=== PATIENT | female | born 1990 | race African-American/Black ===

== ENCOUNTER 2017-03-30 11:30 | Emergency (ER) | payer OTHER ==
[2017-03-30] MEDS ORDERED: ALPRAZolam 0.25 MG TAB ONE (12:47)
== END 2017-03-30 13:38 | disposition home or self-care (01) ==
LOC: ERS 11:30
DX: F41.9 Anxiety disorder, unspecified (principal); I10 Essential (primary) hypertension; F31.9 Bipolar disorder, unspecified; F17.210 Nicotine dependence, cigarettes, uncomplicated
CPT/HCPCS: 99283

== ENCOUNTER 2017-04-02 19:12 | Emergency (ER) | payer OTHER ==
[2017-04-02 19:54] LABS: #Basophils 0.1 thou/uL (0.0-0.2); #Eosinphils 0.4 thou/uL (0.0-0.7); #Lymphocytes 1.4 thou/uL (1.20-3.40); #Monocytes 0.5 thou/uL (0.11-0.59); #Neutrophils 6.5 thou/uL (1.40-6.50); %Basophils 0.7 % (0.0-1.0); %Eosinophils 4.5 % (0.0-10.0); %Lymphocytes 15.5 % (21.0-51.0); %Monocytes 5.5 % (0.0-10.0); Hematocrit 37.6 % (36.0-47.0); Mean Platelet Volume 8.7 fL (7.4-10.4); Red Blood Cell (RBC) Count 4.57 mill/uL (4.20-5.40); White Blood Cell (WBC) Count 8.9 thou/uL (4.8-10.8)
[2017-04-02 20:05] LABS: Bilirubin Negative (Negative); Blood, Urine Negative (Negative); Glucose, Urine (Dipstick) Negative (Negative); Ketone, Urine Negative (Negative); Nitrite Negative (Negative); Protein, Urine (Dipstick) Negative (Neg-Trace); Urobilinogen 0.2 mg/dL (0.2-1.0)
[2017-04-02 20:14] LABS: Acetaminophen Less than 6.0 mcg/mL (10.0-30.0); CK (CPK) 112 U/L (29-168); Lipase 37 U/L (8-78); Salicylate Less than 8.0 mg/dL (15.0-30.0)
[2017-04-02 20:15] LABS: Amphetamine Not Detected (NotDetected); Methadone Not Detected (NotDetected); Methamphetamine Not Detected (NotDetected)
[2017-04-02 20:15] LABS: ALT (SGPT) 9 U/L (8-55); AST (SGOT) 14 U/L (5-34); Alkaline Phosphatase 110 U/L (40-150); Anion Gap 11 mmol/L (10-20); BUN (Urea Nitrogen) 9 mg/dL (7.0-18.7); Bilirubin, Total 0.2 mg/dL (0.2-1.2); Calc. Creatinine Clearance 0 mL/min (70-130); Carbon Dioxide 28 mmol/L (22-29); Chloride 105 mmol/L (98-107); Estimated GFR-MDRD Greater than 90; Globulin 3.6 g/dL (2.4-3.5); Protein, Total 7.8 g/dL (6.0-8.3)
[2017-04-02 20:18] LABS: Troponin I Less than 0.010 ng/mL (< 0.028)
--- NOTE | 2017-04-02 20:26 | RAD ---
PORTABLE AP CHEST X-RAY: 04/02/17 HISTORY: Anxiety, chest pain. COMPARISON: 12/18/16. FINDINGS: The cardiac silhouette and pulmonary vasculature are within normal limits. The lungs are clear. Ther e has been no interval change from prior study. IMPRESSION: No acute cardiopulmonary process. POS: [facility]
[2017-04-02] MEDS ORDERED: Metoclopramide HCl 10 MG/2 ML VIAL ONE (20:56)
[2017-04-02] MEDS ORDERED: diphenhydrAMINE HCl 50 MG/ML 1 ML VIAL ONE (20:56)
[2017-04-02] MEDS ORDERED: Ketorolac Tromethamine 30 MG/ML VIAL ONE (20:56)
== END 2017-04-02 23:29 | disposition home or self-care (01) ==
LOC: ERS 19:12
DX: F41.0 Panic disorder [episodic paroxysmal anxiety] (principal); G43.909 Migraine, unspecified, not intractable, without status migrainosus; I10 Essential (primary) hypertension; F32.9 Major depressive disorder, single episode, unspecified; F17.210 Nicotine dependence, cigarettes, uncomplicated; Z79.899 Other long term (current) drug therapy
CPT/HCPCS: 36415; 71010; 80053; 80306; 80307; 81003; 81025; 82553; 83690; 84443; 84484; 85025; 93005; 96361; 96365; 96375; J1200; J1885; J2765

== ENCOUNTER 2017-04-14 10:24 | Emergency (ER) | payer OTHER ==
[2017-04-14 11:05] LABS: Bilirubin Negative (Negative); Blood, Urine Negative (Negative); Glucose, Urine (Dipstick) Negative (Negative); Ketone, Urine Negative (Negative); Nitrite Negative (Negative); Protein, Urine (Dipstick) Negative (Neg-Trace); Urobilinogen 0.2 mg/dL (0.2-1.0)
[2017-04-14 11:08] LABS: #Basophils 0.1 thou/uL (0.0-0.2); #Eosinphils 0.2 thou/uL (0.0-0.7); #Lymphocytes 2.1 thou/uL (1.20-3.40); #Monocytes 0.5 thou/uL (0.11-0.59); #Neutrophils 3.2 thou/uL (1.40-6.50); %Eosinophils 3.1 % (0.0-10.0); %Lymphocytes 34.4 % (21.0-51.0); %Monocytes 7.5 % (0.0-10.0); Hematocrit 35.3 % (36.0-47.0); Mean Platelet Volume 9.1 fL (7.4-10.4); Red Blood Cell (RBC) Count 4.42 mill/uL (4.20-5.40); White Blood Cell (WBC) Count 6.1 thou/uL (4.8-10.8)
[2017-04-14] MEDS ORDERED: Lidocaine Viscous Sol 2% 15 ml UD Cup ONE (11:15)
[2017-04-14] MEDS ORDERED: Ondansetron ODT 4 MG TAB ONE (11:15)
[2017-04-14] MEDS ORDERED: Mag-Al 1200 mg/1200 mg/30 ML UDCUP ONE (11:15)
[2017-04-14] MEDS ORDERED: Ketorolac Tromethamine 30 MG/ML VIAL ONE (11:26)
[2017-04-14 11:35] LABS: ALT (SGPT) 9 U/L (8-55); AST (SGOT) 14 U/L (5-34); Alkaline Phosphatase 113 U/L (40-150); Anion Gap 11 mmol/L (10-20); BUN (Urea Nitrogen) 7 mg/dL (7.0-18.7); Bilirubin, Total 0.4 mg/dL (0.2-1.2); Calc. Creatinine Clearance 0 mL/min (70-130); Calcium 10.1 mg/dL (7.8-10.44); Carbon Dioxide 25 mmol/L (22-29); Chloride 103 mmol/L (98-107); Estimated GFR-MDRD Greater than 90; Globulin 3.6 g/dL (2.4-3.5); Lipase 18 U/L (8-78); Protein, Total 8.2 g/dL (6.0-8.3)
[2017-04-14] MEDS ORDERED: Dicyclomine 20 MG TAB ONE (12:12)
== END 2017-04-14 13:01 | disposition home or self-care (01) ==
LOC: ERS 10:24
DX: R10.9 Unspecified abdominal pain (principal); R11.2 Nausea with vomiting, unspecified; I10 Essential (primary) hypertension; F41.9 Anxiety disorder, unspecified; F32.9 Major depressive disorder, single episode, unspecified; Z71.6 Tobacco abuse counseling; F17.210 Nicotine dependence, cigarettes, uncomplicated
CPT/HCPCS: 36415; 80053; 81003; 81025; 83690; 85025; 96372; 99406; J1885; Q0162

== ENCOUNTER 2017-06-06 18:53 | Emergency (ER) | payer OTHER ==
[2017-06-06] MEDS ORDERED: Acetaminophen 500 MG TAB ONE (19:22)
[2017-06-06] MEDS ORDERED: Ketorolac Tromethamine 30 MG/ML VIAL ONE (19:22)
[2017-06-06 19:37] LABS: #Basophils 0.1 thou/uL (0.0-0.2); #Eosinphils 0.5 thou/uL (0.0-0.7); #Lymphocytes 2.4 thou/uL (1.20-3.40); #Monocytes 0.6 thou/uL (0.11-0.59); #Neutrophils 4.3 thou/uL (1.40-6.50); %Basophils 1.2 % (0.0-1.0); %Eosinophils 6.4 % (0.0-10.0); %Lymphocytes 30.4 % (21.0-51.0); %Monocytes 7.1 % (0.0-10.0); Hematocrit 35.6 % (36.0-47.0); Mean Platelet Volume 9.4 fL (7.4-10.4); Red Blood Cell (RBC) Count 4.26 mill/uL (4.20-5.40); White Blood Cell (WBC) Count 7.7 thou/uL (4.8-10.8)
--- NOTE | 2017-06-06 19:41 | RAD ---
RADIOGRAPH CHEST 2 VIEWS: 06/06/17 HISTORY: 26-year-old female with chest pain and cough. FINDINGS: There is no air space density, pulmonary edema, pleural effusion, pneumothorax, or cardiomegaly. IMPRESSION: No acute cardiopulmonary findings. jn [] POS: [facility]
[2017-06-06 19:57] LABS: ALT (SGPT) 12 U/L (8-55); AST (SGOT) 19 U/L (5-34); Alkaline Phosphatase 98 U/L (40-150); Anion Gap 14 mmol/L (10-20); BUN (Urea Nitrogen) 11 mg/dL (7.0-18.7); Bilirubin, Total 0.2 mg/dL (0.2-1.2); CK (CPK) 111 U/L (29-168); Calc. Creatinine Clearance 0 mL/min (70-130); Calcium 9.7 mg/dL (7.8-10.44); Carbon Dioxide 23 mmol/L (22-29); Chloride 106 mmol/L (98-107); Estimated GFR-MDRD Greater than 90; Globulin 3.8 g/dL (2.4-3.5); Lipase 44 U/L (8-78); Protein, Total 8.1 g/dL (6.0-8.3)
[2017-06-06 20:04] LABS: Bilirubin Negative (Negative); Blood, Urine Negative (Negative); Glucose, Urine (Dipstick) Negative (Negative); Ketone, Urine Negative (Negative); Nitrite Negative (Negative); Protein, Urine (Dipstick) Negative (Neg-Trace); Urobilinogen 0.2 mg/dL (0.2-1.0)
[2017-06-06 20:07] LABS: Troponin I Less than 0.010 ng/mL (< 0.028)
[2017-06-06] MEDS ORDERED: Lorazepam 2 MG/ML VIAL ONE (20:16)
[2017-06-06] MEDS ORDERED: Morphine 4 MG/ML VIAL ONE (21:13)
== END 2017-06-06 23:49 | disposition home or self-care (01) ==
LOC: ERS 18:53
DX: J40 Bronchitis, not specified as acute or chronic (principal); I10 Essential (primary) hypertension; F31.9 Bipolar disorder, unspecified; F41.9 Anxiety disorder, unspecified; F17.210 Nicotine dependence, cigarettes, uncomplicated
CPT/HCPCS: 71020; 80053; 81003; 82553; 83690; 84484; 85025; 93005; 96361; 96374; 96375; J1885; J2060; J2270

== ENCOUNTER 2017-07-05 09:02 | Emergency (ER) | payer OTHER | END 2017-07-05 09:35 | disposition home or self-care (01) | LOC: ERS 09:02 | DX: K02.9 Dental caries, unspecified (principal); M25.561 Pain in right knee; M25.562 Pain in left knee; G89.29 Other chronic pain; F41.9 Anxiety disorder, unspecified; F32.9 Major depressive disorder, single episode, unspecified; F17.210 Nicotine dependence, cigarettes, uncomplicated; I10 Essential (primary) hypertension | CPT/HCPCS: 99282 ==

== ENCOUNTER 2017-08-28 09:37 | Emergency (ER) | payer OTHER ==
[2017-08-28 10:54] LABS: Bilirubin Negative (Negative); Blood, Urine Negative (Negative); Clarity CLEAR (Clear); Glucose, Urine (Dipstick) Negative (Negative); Leukocyte Negative (Negative); Nitrite Negative (Negative); Pregnancy Test - Urine (BHCG) Negative (Negative); Pregu Control Background? CLEAR/WHITE (CLR/WHITE); Pregu Control Bar Appear? YES (CONTROL BAR); Protein, Urine (Dipstick) Negative (Neg-Trace); Specific Gravity 1.019 (1.002-1.036); Specific Gravity, Urine 1.019 (1.002-1.036)
[2017-08-28 11:21] LABS: #Basophils 0.1 thou/uL (0.0-0.2); #Eosinphils 0.2 thou/uL (0.0-0.7); #Lymphocytes 1.6 thou/uL (1.20-3.40); #Monocytes 0.5 thou/uL (0.11-0.59); #Neutrophils 3.9 thou/uL (1.40-6.50); %Eosinophils 3.8 % (0.0-10.0); %Monocytes 7.4 % (0.0-10.0); %Neutrophils 61.7 % (42.0-75.0); Hemoglobin 11.4 g/dL (12.0-16.0); Mean Corpuscular HGB CONC 31.8 g/dL (32.0-36.0); Mean Corpuscular Hemoglobin 26.2 pg (27.0-31.0); Mean Corpuscular Volume 82.2 fl (81.0-99.0); Mean Platelet Volume 9.1 fL (7.4-10.4); Platelet Count 195 thou/uL (130-400); RBC Distribution Width 15.8 % (11.5-14.5); Red Blood Cell (RBC) Count 4.35 mill/uL (4.20-5.40); White Blood Cell (WBC) Count 6.3 thou/uL (4.8-10.8)
--- NOTE | 2017-08-28 11:24 | RAD ---
ONE VIEW CHEST: History: Sepsis. Comparison: 04-02-17 FINDINGS: Normal cardiac silhouette. The pulmonary vessels and hilum are normal. Costophrenic angles are clear. No consolidation or mass. No pneumothorax or osseous abnormality. IMPRESSION: No acute cardiopulmonary process. POS: [facility]
[2017-08-28 11:51] LABS: ALT (SGPT) Less than 7 U/L (8-55); AST (SGOT) 13 U/L (5-34); Albumin 4.2 g/dL (3.5-5.0); Alkaline Phosphatase 82 U/L (40-150); Anion Gap 12 mmol/L (10-20); BUN (Urea Nitrogen) 6 mg/dL (7.0-18.7); Bilirubin, Total 0.3 mg/dL (0.2-1.2); Calc. Creatinine Clearance 0 mL/min (70-130); Calcium 9.8 mg/dL (7.8-10.44); Carbon Dioxide 21 mmol/L (22-29); Chloride 107 mmol/L (98-107); Estimated GFR-MDRD Greater than 90; Glucose 85 mg/dL (70-105); Potassium 3.9 mmol/L (3.5-5.1); Protein, Total 7.2 g/dL (6.0-8.3); Sodium 136 mmol/L (136-145)
[2017-08-28] MEDS ORDERED: Ketorolac Tromethamine 30 MG/ML VIAL ONE (11:59)
== END 2017-08-28 12:09 | disposition home or self-care (01) ==
LOC: ERS 09:37
DX: M54.5 Low back pain (principal); I10 Essential (primary) hypertension; F41.9 Anxiety disorder, unspecified; F32.9 Major depressive disorder, single episode, unspecified; F17.210 Nicotine dependence, cigarettes, uncomplicated; Z79.899 Other long term (current) drug therapy
CPT/HCPCS: 36415; 71045; 80053; 81003; 81025; 83605; 85025; 87040; 87086; 96374; 99406; J1885

== ENCOUNTER 2018-01-25 06:11 | Emergency (ER) | payer OTHER ==
[2018-01-25] MEDS ORDERED: Ketorolac Tromethamine 60 MG/2 ML VIAL ONE (06:48)
[2018-01-25] MEDS ORDERED: Ondansetron ODT 4 MG TAB ONE (06:48)
== END 2018-01-25 07:06 | disposition home or self-care (01) ==
LOC: ERS 06:11
DX: K08.89 Other specified disorders of teeth and supporting structures (principal); I10 Essential (primary) hypertension; F32.9 Major depressive disorder, single episode, unspecified; F41.9 Anxiety disorder, unspecified; F17.210 Nicotine dependence, cigarettes, uncomplicated; Z71.6 Tobacco abuse counseling
CPT/HCPCS: 96372; 99406; J1885; Q0162

== ENCOUNTER 2018-04-25 14:46 | Emergency (ER) | payer OTHER | END 2018-04-25 16:30 | disposition home or self-care (01) | LOC: ERS 14:46 | DX: K04.7 Periapical abscess without sinus (principal); K02.9 Dental caries, unspecified; I10 Essential (primary) hypertension; F41.9 Anxiety disorder, unspecified; F32.9 Major depressive disorder, single episode, unspecified; F17.210 Nicotine dependence, cigarettes, uncomplicated; Z87.442 Personal history of urinary calculi; Z79.899 Other long term (current) drug therapy | CPT/HCPCS: 99283 ==

== ENCOUNTER 2018-10-10 08:24 | Emergency (ER) | payer OTHER ==
[2018-10-10] MEDS ORDERED: Ibuprofen 800 MG TAB ONE (10:33)
== END 2018-10-10 10:46 | disposition home or self-care (01) ==
LOC: ERS 08:24
DX: S83.91XA Sprain of unspecified site of right knee, initial encounter (principal); F17.210 Nicotine dependence, cigarettes, uncomplicated; F32.9 Major depressive disorder, single episode, unspecified; F41.9 Anxiety disorder, unspecified; I10 Essential (primary) hypertension; Z87.442 Personal history of urinary calculi; W01.0XXA Fall on same level from slipping, tripping and stumbling without subsequent striking against object, initial encounter
CPT/HCPCS: 99283

== ENCOUNTER 2019-03-25 09:10 | Emergency (ER) | payer OTHER ==
[2019-03-25] MEDS ORDERED: Ondansetron ODT 4 MG TAB ONE (09:57)
[2019-03-25] MEDS ORDERED: Morphine 4 MG/ML VIAL ONE (09:57)
== END 2019-03-25 10:20 | disposition home or self-care (01) ==
LOC: ERS 09:10
DX: K02.9 Dental caries, unspecified (principal); I10 Essential (primary) hypertension; F41.9 Anxiety disorder, unspecified; F32.9 Major depressive disorder, single episode, unspecified; F17.210 Nicotine dependence, cigarettes, uncomplicated
CPT/HCPCS: 96372; 99283; J2270; Q0162

== ENCOUNTER 2019-09-16 10:53 | Emergency (ER) | payer OTHER | END 2019-09-16 11:23 | disposition home or self-care (01) | LOC: ERS 10:53 | DX: K02.9 Dental caries, unspecified (principal); I10 Essential (primary) hypertension; F32.9 Major depressive disorder, single episode, unspecified; F41.9 Anxiety disorder, unspecified; F17.210 Nicotine dependence, cigarettes, uncomplicated | CPT/HCPCS: 99281 ==

== ENCOUNTER 2020-08-11 11:36 | Emergency (ER) | payer OTHER | END 2020-08-11 12:30 | disposition home or self-care (01) | LOC: ERS 11:36 | DX: R21 Rash and other nonspecific skin eruption (principal); R22.2 Localized swelling, mass and lump, trunk; B95.8 Unspecified staphylococcus as the cause of diseases classified elsewhere; I10 Essential (primary) hypertension; F17.210 Nicotine dependence, cigarettes, uncomplicated | CPT/HCPCS: 99282 ==

== ENCOUNTER 2020-11-12 13:57 | Emergency (ER) | payer OTHER ==
[2020-11-12] MEDS ORDERED: Ondansetron PF 4 MG/2 ML Vial ONE (14:28)
[2020-11-12 14:34] LABS: Bacteria/HPF 4+ HPF (None Seen); Bilirubin Negative (Negative); Blood, Urine Negative (Negative); Clarity Turbid (Clear); Glucose, Urine (Dipstick) Normal (Negative); Ketone, Urine Negative (Negative); Leukocyte 250 Leu/uL (Negative); Nitrite Negative (Negative); Protein, Urine (Dipstick) 30 mg/dL (Neg-Trace); Specific Gravity, Urine 1.028 (1.002-1.036); Squamous Epithelial 21-50 HPF (0-3); Urobilinogen Normal mg/dL (Less than 2)
[2020-11-12 14:37] LABS: Pregnancy Test - Urine (BHCG) Negative (Negative); Pregu Control Background? CLEAR/WHITE (CLR/WHITE); Pregu Control Bar Appear? YES (CONTROL BAR); Specific Gravity 1.028 (1.002-1.036)
[2020-11-12] MEDS ORDERED: Ketorolac Tromethamine 30 MG/ML VIAL ONE ×2 (14:52→15:38)
[2020-11-12] MEDS ORDERED: Ondansetron ODT 8 MG TAB ONE (15:38)
== END 2020-11-12 16:21 | disposition home or self-care (01) ==
LOC: ERS 13:57
DX: N10 Acute pyelonephritis (principal); I10 Essential (primary) hypertension; F17.210 Nicotine dependence, cigarettes, uncomplicated; Z79.899 Other long term (current) drug therapy; Z87.442 Personal history of urinary calculi
CPT/HCPCS: 74176; 81003; 81015; 81025; 96372; J1885; J2405; Q0162

== ENCOUNTER 2021-06-13 14:04 | Emergency (ER) | payer OTHER ==
[2021-06-13] MEDS ORDERED: diphenhydrAMINE 50 MG CAP ONE ×2 (14:49→15:38)
[2021-06-13] MEDS ORDERED: Metoclopramide HCl 10 MG/2 ML VIAL ONE (14:49)
[2021-06-13] MEDS ORDERED: diphenhydrAMINE 50 MG/ML VIAL ONE (14:49)
[2021-06-13] MEDS ORDERED: Ketorolac Tromethamine 30 MG/ML VIAL ONE (14:49)
[2021-06-13] MEDS ORDERED: Metoclopramide HCl 10 MG TAB ONE (15:38)
== END 2021-06-13 16:06 | disposition home or self-care (01) ==
LOC: ERS 14:04
DX: R51.9 Headache, unspecified (principal); I10 Essential (primary) hypertension; F17.210 Nicotine dependence, cigarettes, uncomplicated; Z79.899 Other long term (current) drug therapy
CPT/HCPCS: 93005; 96372; J1200; J1885; J2765

== ENCOUNTER 2022-03-25 13:33 | Emergency (ER) | payer OTHER ==
[2022-03-25] MEDS ORDERED: HYDROcodone/Acetaminophen 5/325 mg Tablet ONE (15:49)
== END 2022-03-25 15:49 | disposition home or self-care (01) ==
LOC: ERS 13:33
DX: L02.412 Cutaneous abscess of left axilla (principal); I10 Essential (primary) hypertension; F17.210 Nicotine dependence, cigarettes, uncomplicated; Z79.899 Other long term (current) drug therapy
CPT/HCPCS: 10060

== ENCOUNTER 2022-06-04 17:03 | Emergency (ER) | payer OTHER ==
[2022-06-04] MEDS ORDERED: Ondansetron ODT 4 MG TAB ONE (18:30)
[2022-06-04] MEDS ORDERED: Ketorolac Tromethamine 30 MG/ML VIAL ONE (18:30)
== END 2022-06-04 18:55 | disposition home or self-care (01) ==
LOC: ERS 17:03
DX: K04.7 Periapical abscess without sinus (principal); K02.9 Dental caries, unspecified; K03.81 Cracked tooth; I10 Essential (primary) hypertension; F17.210 Nicotine dependence, cigarettes, uncomplicated
CPT/HCPCS: 96372; 99282; J1885; Q0162

== ENCOUNTER 2022-07-06 10:57 | Emergency (ER) | payer OTHER ==
[2022-07-06] MEDS ORDERED: Iopamidol-370 76% 500 ML 1 ML ONE (11:23)
[2022-07-06 12:46] LABS: Hemoglobin 10.6 g/dL (12.0-16.0); Mean Corpuscular HGB CONC 30.6 g/dL (32.0-36.0); Mean Corpuscular Hemoglobin 21.9 pg (27.0-31.0); Mean Corpuscular Volume 71.6 fl (78.0-98.0); Platelet Count 260 10x3/uL (130-400); Red Blood Cell (RBC) Count 4.84 mill/uL (4.20-5.40); White Blood Cell (WBC) Count 9.3 10x3/uL (4.8-10.8)
[2022-07-06 13:03] LABS: ALT (SGPT) Less than 7 U/L (8-55); AST (SGOT) 7 U/L (5-34); Alkaline Phosphatase 90 U/L (40-110); Anion Gap 13 mmol/L (10-20); BUN (Urea Nitrogen) 10 mg/dL (7.0-18.7); Bilirubin, Total 0.2 mg/dL (0.2-1.2); Calc. Creatinine Clearance 0 mL/min (70-130); Calcium 9.4 mg/dL (7.8-10.44); Carbon Dioxide 22 mmol/L (22-29); Chloride 105 mmol/L (98-107); Estimated GFR 93; Globulin 3.7 g/dL (2.4-3.5); Glucose 78 mg/dL (70-105); Potassium 3.7 mmol/L (3.5-5.1); Protein, Total 7.7 g/dL (6.0-8.3); Sodium 136 mmol/L (136-145)
[2022-07-06 13:07] LABS: #Lymphocytes 1.6 thou/uL (1.20-3.40); #Monocytes 0.9 thou/uL (0.11-0.59); #Neutrophils 5.8 thou/uL (1.40-6.50); %Basophils 0.3 % (0.0-1.0); %Eosinophils 10.6 % (0.0-10.0); %Lymphocytes 17.1 % (21.0-51.0); %Monocytes 9.4 % (0.0-10.0); %Neutrophils 62.6 % (42.0-75.0)
[2022-07-06 13:08] LABS: MDiff Complete? YES; Microcytosis SLIGHT = 6-15 cells (100X) (0-5/hpf); Platelet Morphology Comment Appears Adequate
[2022-07-06] MEDS ORDERED: Morphine 4 MG/ML VIAL ONE (14:14)
[2022-07-06] MEDS ORDERED: Ketorolac Tromethamine 30 MG/ML VIAL ONE (14:14)
== END 2022-07-06 16:06 | disposition home or self-care (01) ==
LOC: ERS 10:57
DX: R07.89 Other chest pain (principal); J18.9 Pneumonia, unspecified organism; R59.9 Enlarged lymph nodes, unspecified; I10 Essential (primary) hypertension; F17.210 Nicotine dependence, cigarettes, uncomplicated; Z79.899 Other long term (current) drug therapy
CPT/HCPCS: 36415; 71045; 71275; 80053; 83880; 84484; 85025; 85379; 93005; 96374; 96375; J1885; J2270; Q9967

== ENCOUNTER 2022-11-02 00:27 | Emergency (ER) | payer OTHER ==
[2022-11-02] MEDS ORDERED: Acetaminophen 500 MG TAB ONE (01:17)
[2022-11-02] MEDS ORDERED: Dicyclomine 20 MG/2 ML VIAL ONE (01:17)
[2022-11-02 01:19] LABS: #Basophils 0.1 thou/uL (0.0-0.2); #Eosinphils 0.2 thou/uL (0.0-0.7); #Monocytes 1.1 thou/uL (0.11-0.59); #Neutrophils 13.1 thou/uL (1.40-6.50); %Basophils 0.7 % (0.0-1.0); %Eosinophils 0.9 % (0.0-10.0); %Lymphocytes 17.2 % (21.0-51.0); %Neutrophils 74.8 % (42.0-75.0); Mean Corpuscular HGB CONC 30.3 g/dL (32.0-36.0); Mean Corpuscular Hemoglobin 22.4 pg (27.0-31.0); Mean Corpuscular Volume 74.1 fl (78.0-98.0); Mean Platelet Volume 10.1 fL (7.4-10.4); Platelet Count 388 10x3/uL (130-400); RBC Distribution Width 17.7 % (11.5-14.5); White Blood Cell (WBC) Count 17.5 10x3/uL (4.8-10.8)
[2022-11-02 01:27] LABS: Bilirubin Negative (Negative); Blood, Urine Negative (Negative); Clarity Turbid (Clear); Glucose, Urine (Dipstick) Normal (Negative); Ketone, Urine 20 mg/dL (Negative); Leukocyte 250 Leu/uL (Negative); Nitrite Negative (Negative); Protein, Urine (Dipstick) 70 mg/dL (Neg-Trace); Specific Gravity, Urine 1.038 (1.002-1.036); pH, Urine 5.5 (5.0-9.0)
[2022-11-02 01:33] LABS: Bacteria/HPF 1+ HPF (None Seen); RBC/HPF 0-3 HPF (0-3); Squamous Epithelial 0-3 HPF (0-3); WBC/HPF 0-3 HPF (0-3)
[2022-11-02 01:41] LABS: BHCG - Serum Negative (NEGATIVE); Pregs Control Background? CLEAR/WHITE (CLR/WHITE); Pregs Control Bar Appear? YES (CONTROL BAR)
[2022-11-02 01:42] LABS: ALT (SGPT) 10 U/L (8-55); AST (SGOT) 26 U/L (5-34); Albumin 4.6 g/dL (3.5-5.0); Alkaline Phosphatase 92 U/L (40-110); Anion Gap 16 mmol/L (10-20); BUN (Urea Nitrogen) 15 mg/dL (7.0-18.7); Bilirubin, Total 0.2 mg/dL (0.2-1.2); CK (CPK) 1881 U/L (29-168); Calc. Creatinine Clearance 0 mL/min (70-130); Calcium 10.4 mg/dL (7.8-10.44); Carbon Dioxide 17 mmol/L (22-29); Chloride 106 mmol/L (98-107); Estimated GFR 67; Globulin 4.1 g/dL (2.4-3.5); Glucose 93 mg/dL (70-105); Lipase 39 U/L (8-78); Potassium 4.4 mmol/L (3.5-5.1); Protein, Total 8.7 g/dL (6.0-8.3); Sodium 135 mmol/L (136-145)
[2022-11-02 01:49] LABS: CellaVision Operator ID LAB.CLH1; Large Platelets 5.9 % (0-5); Smudge Cells 3.9 %
[2022-11-02 02:15] LABS: Elliptocytes SLIGHT = 2-5 cells (100X) (0-1/hpf); Platelet Morphology Comment Platelets Normal; Polychromasia SLIGHT = 2-3 cells (100X) (0-2/hpf)
[2022-11-02] MEDS ORDERED: Ketorolac Tromethamine 30 MG/ML VIAL ONE (02:29)
[2022-11-02] MEDS ORDERED: Ondansetron PF 4 MG/2 ML Vial ONE (02:29)
[2022-11-03 11:08] LABS: Microcytosis SLIGHT = 6-15 cells (100X) (0-5/hpf)
== END 2022-11-02 05:44 | disposition home or self-care (01) ==
LOC: ERS 00:27
DX: K59.00 Constipation, unspecified (principal); I10 Essential (primary) hypertension; F17.210 Nicotine dependence, cigarettes, uncomplicated; Z79.899 Other long term (current) drug therapy
CPT/HCPCS: 36415; 74018; 74176; 80053; 81003; 81015; 82550; 83690; 84703; 85025; 96372; 96374; 96375; J1885; J2405

== ENCOUNTER 2023-09-20 15:31 | Emergency (ER) | payer OTHER ==
[2023-09-20 17:11] LABS: Hematocrit 31.8 % (36.0-47.0); Mean Corpuscular HGB CONC 31.4 g/dL (32.0-36.0); Mean Corpuscular Hemoglobin 23.5 pg (27.0-31.0); Mean Corpuscular Volume 74.8 fL (78.0-98.0); Mean Platelet Volume 10.3 fL (7.4-10.4); Platelet Count 356 10x3/uL (130-400); RBC Distribution Width 20.2 % (11.5-14.5); Red Blood Cell (RBC) Count 4.25 mill/uL (4.20-5.40)
[2023-09-20 17:16] LABS: BHCG - Serum Negative (NEGATIVE); Pregs Control Background? CLEAR/WHITE (CLR/WHITE); Pregs Control Bar Appear? YES (CONTROL BAR)
[2023-09-20 17:24] LABS: ALT (SGPT) 12 U/L (8-55); AST (SGOT) 15 U/L (5-34); Acetaminophen Less than 10 mcg/mL (10.0-30.0); Albumin 4.3 g/dL (3.5-5.0); Alcohol Less than 10.0 mg/dL (Less than 10); Alkaline Phosphatase 98 U/L (40-110); Anion Gap 11 mmol/L (10-20); BUN (Urea Nitrogen) 7 mg/dL (7.0-18.7); Bilirubin, Total 0.3 mg/dL (0.2-1.2); Calc. Creatinine Clearance 0 mL/min (70-130); Carbon Dioxide 23 mmol/L (22-29); Chloride 108 mmol/L (98-107); Estimated GFR 77; Globulin 3.2 g/dL (2.4-3.5); Glucose 92 mg/dL (70-105); Protein, Total 7.5 g/dL (6.0-8.3); Salicylate Less than 8.0 mg/dL (15.0-30.0); Sodium 138 mmol/L (136-145)
[2023-09-20 17:31] LABS: Anisocytosis SLIGHT = 6-15 cells HPF (0-5); Hypochromia SLIGHT = 6-15 cells HPF (0-5); Microcytosis SLIGHT = 6-15 cells HPF (0-5); Ovalocytes SLIGHT = 2-5 cells HPF (0-1); Platelet Adequacy Comment Platelets Normal; Polychromasia SLIGHT = 2-3 cells HPF (0-2)
[2023-09-20 17:36] LABS: #Basophils 0.05 10x3/uL (0.0-0.2); %Basophils 0.6 % (0.0-1.0); %Eosinophils 2.8 % (0.0-10.0); %Lymphocytes 22.5 % (21.0-51.0); %Monocytes 11.1 % (0.0-10.0); %Neutrophils 62.7 % (42.0-75.0)
== END 2023-09-20 18:50 | disposition home or self-care (01) ==
LOC: ERS 15:31
DX: F30.9 Manic episode, unspecified (principal); I10 Essential (primary) hypertension; F17.210 Nicotine dependence, cigarettes, uncomplicated; Z75.3 Unavailability and inaccessibility of health-care facilities; Z79.899 Other long term (current) drug therapy
CPT/HCPCS: 36415; 80053; 80307; 84703; 85025; 99284

== ENCOUNTER 2024-03-24 15:11 | Emergency (ER) | payer OTHER ==
[2024-03-24 17:04] LABS: #Basophils 0.05 10x3/uL (0.0-0.2); %Basophils 0.5 % (0.0-1.0); %Eosinophils 4.1 % (0.0-10.0); %Lymphocytes 29.3 % (21.0-51.0); %Monocytes 7.2 % (0.0-10.0); %Neutrophils 58.7 % (42.0-75.0); Hematocrit 37.4 % (36.0-47.0); Hemoglobin 11.7 g/dL (12.0-16.0); Mean Corpuscular HGB CONC 31.3 g/dL (32.0-36.0); Mean Corpuscular Hemoglobin 23.3 pg (27.0-31.0); Mean Corpuscular Volume 74.4 fL (78.0-98.0); Mean Platelet Volume 10.6 fL (7.4-10.4); Platelet Count 463 10x3/uL (130-400); RBC Distribution Width 18.1 % (11.5-14.5); Red Blood Cell (RBC) Count 5.03 mill/uL (4.20-5.40)
[2024-03-24 17:13] LABS: ALT (SGPT) 9 U/L (8-55); AST (SGOT) 12 U/L (5-34); Albumin 3.8 g/dL (3.5-5.0); Alkaline Phosphatase 102 U/L (40-110); Anion Gap 9 mmol/L (10-20); BUN (Urea Nitrogen) 8 mg/dL (7.0-18.7); Bilirubin, Total 0.2 mg/dL (0.2-1.2); Calc. Creatinine Clearance 0 mL/min (70-130); Calcium 9.7 mg/dL (7.8-10.44); Carbon Dioxide 20 mmol/L (22-29); Chloride 110 mmol/L (98-107); Estimated GFR 91; Globulin 3.9 g/dL (2.4-3.5); Glucose 86 mg/dL (70-105); Lipase 40 U/L (8-78); Potassium 4.2 mmol/L (3.5-5.1); Protein, Total 7.7 g/dL (6.0-8.3); Sodium 135 mmol/L (136-145)
[2024-03-24 17:22] LABS: Pregnancy Test - Urine (BHCG) Negative (Negative); Pregu Control Background? CLEAR/WHITE (CLR/WHITE); Pregu Control Bar Appear? YES (CONTROL BAR); Specific Gravity 1.046 (1.002-1.036)
[2024-03-24 17:28] LABS: Bilirubin Negative (Negative); Blood, Urine Negative (Negative); Clarity Clear (Clear); Glucose, Urine (Dipstick) Normal (Negative); Ketone, Urine Negative (Negative); Leukocyte 25 Leu/uL (Negative); Nitrite Negative (Negative); Protein, Urine (Dipstick) 30 mg/dL (Neg-Trace); Urobilinogen 3 mg/dL (Less than 2); pH, Urine 6.5 (5.0-9.0)
[2024-03-24 17:29] LABS: Bacteria/HPF None Seen HPF (None Seen); CAUTI Indications for Culture Pelvic or flank pain; RBC/HPF 0-3 HPF (0-3); Specific Gravity, Urine 1.046 (1.002-1.036)
[2024-03-24 17:30] LABS: Urine Culture Reflex No No
[2024-03-24 17:32] LABS: Microcytosis SLIGHT = 6-15 cells HPF (0-5); Platelet Adequacy Comment Platelets Increased; Polychromasia SLIGHT = 2-3 cells HPF (0-2); Tear Drops SLIGHT = 2-5 cells HPF (0-1)
[2024-03-24] MEDS ORDERED: Mag-Al 1200 mg/1200 mg/30 ML UDCUP ONE (17:32)
[2024-03-24] MEDS ORDERED: Lidocaine Viscous Sol 2% 15 ml UD Cup ONE (17:32)
== END 2024-03-24 19:25 | disposition home or self-care (01) ==
LOC: ERS 15:11
DX: R10.10 Upper abdominal pain, unspecified (principal); R10.13 Epigastric pain; I10 Essential (primary) hypertension; F17.210 Nicotine dependence, cigarettes, uncomplicated
CPT/HCPCS: 36415; 76705; 80053; 81001; 81025; 83690; 85025

== ENCOUNTER 2024-03-26 04:32 | Emergency (ER) | payer OTHER ==
[2024-03-26] MEDS ORDERED: Ketorolac Tromethamine 30 MG (1 mL) VIAL ONE (05:25)
[2024-03-26] MEDS ORDERED: Dexamethasone 10 MG/ML VIAL ONE (05:26)
[2024-03-26] MEDS ORDERED: Clindamycin/D5W 900 MG in Premix 1 BAG IVPB SCH (06:15)
== END 2024-03-26 06:40 | disposition home or self-care (01) ==
LOC: ERS 04:32
DX: R22.0 Localized swelling, mass and lump, head (principal); F17.210 Nicotine dependence, cigarettes, uncomplicated; I10 Essential (primary) hypertension
CPT/HCPCS: 96374; 96375; J1100; J1885; J3490

== ENCOUNTER 2024-12-21 08:01 | Emergency (ER) | payer MEDICAID ==
[2024-12-21] MEDS ORDERED: Ketorolac Tromethamine 30 MG (1 mL) VIAL ONE (08:36)
[2024-12-21] MEDS ORDERED: Famotidine/PF 20 mg/2ml Vial ONE (08:37)
[2024-12-21] MEDS ORDERED: Ondansetron PF 4 MG/2 ML Vial ONE (08:37)
[2024-12-21 08:45] LABS: Hematocrit 37.1 % (36.0-47.0); Hemoglobin 11.8 g/dL (12.0-16.0); Mean Corpuscular Hemoglobin 24.5 pg (27.0-31.0); Mean Corpuscular Volume 77.0 fL (78.0-98.0); Platelet Count 336 10x3/uL (130-400); Red Blood Cell (RBC) Count 4.82 mill/uL (4.20-5.40); White Blood Cell (WBC) Count 7.26 10x3/uL (4.8-10.8)
[2024-12-21 08:47] LABS: Pregnancy Test - Urine (BHCG) Negative (Negative); Pregu Control Background? CLEAR/WHITE (CLR/WHITE); Pregu Control Bar Appear? YES (CONTROL BAR)
[2024-12-21 08:51] LABS: CAUTI Indications for Culture Pelvic or flank pain; Glucose, Urine (Dipstick) Normal (Negative); Leukocyte 75 Leu/uL (Negative); Protein, Urine (Dipstick) 70 mg/dL (Neg-Trace); RBC/HPF 0-3 HPF (0-3)
[2024-12-21 08:57] LABS: Specific Gravity, Urine 1.057 (1.002-1.036)
[2024-12-21 09:05] LABS: Bacteria/HPF 3+ HPF (None Seen)
[2024-12-21 09:05] LABS: ALT (SGPT) 18 U/L (Less than 34); AST (SGOT) 18 U/L (11-34); Albumin 3.6 g/dL (3.1-4.5); Alkaline Phosphatase 97 U/L (40-110); Anion Gap 10 mmol/L (10-20); BUN (Urea Nitrogen) 8 mg/dL (7.0-18.7); Bilirubin, Total 0.2 mg/dL (0.3-1.2); Calc. Creatinine Clearance 0 mL/min (70-130); Calcium 8.7 mg/dL (7.8-10.44); Carbon Dioxide 21 mmol/L (22-29); Chloride 111 mmol/L (98-107); Globulin 3.0 g/dL (2.4-3.5); Glucose 98 mg/dL (70-105); Lipase 42 U/L (8-78); Potassium 4.1 mmol/L (3.5-5.1); Sodium 138 mmol/L (136-145)
[2024-12-21 09:07] LABS: Troponin I Less than 0.010 ng/mL (< 0.028)
[2024-12-21 09:07] LABS: Urine Culture Reflex Yes Yes
[2024-12-21 09:13] LABS: Anisocytosis SLIGHT = 6-15 cells HPF (0-5); Macrocytosis SLIGHT = 6-15 cells HPF (0-5); Platelet Adequacy Comment Platelets Normal; Polychromasia SLIGHT = 2-3 cells HPF (0-2); Smudge Cells 18.0 %; Target Cells SLIGHT = 2-5 cells HPF (0-1); Toxic Granulation SLIGHT
[2024-12-21] MEDS ORDERED: Acetaminophen 500 MG TAB ONE (09:21)
[2024-12-21] MEDS ORDERED: Mag-Al 1200 mg/1200 mg/30 ML UDCUP ONE (09:47)
[2024-12-21] MEDS ORDERED: Lidocaine Viscous Sol 2% 15 ml UD Cup ONE (09:47)
[2024-12-21] MEDS ORDERED: Iopamidol-370 76% 500 ML MDV (1 ML CHARGE) ONE (12:38)
== END 2024-12-21 09:55 | disposition home or self-care (01) ==
LOC: ERS 08:01
DX: R10.13 Epigastric pain (principal); I10 Essential (primary) hypertension; F17.210 Nicotine dependence, cigarettes, uncomplicated
CPT/HCPCS: 74177; 76705; 80053; 81001; 81025; 83605; 83690; 84484; 85025; 87086; 93005; 96372; 96374; 96375; J1885; J2270; J2405; J3490; Q9967